=== PATIENT | female | born 1995 ===

== ENCOUNTER 2019-07-28 18:40 | Emergency (ER) | payer SELFPAY ==
--- NOTE | 2019-07-28 20:04 | CT ---
CT Brain WO Con History: Headache Comparison: None. Findings: No acute hemorrhage or infarct. No midline shift or mass effect. Ventricular size and extra -axial CSF spaces are normal. Calvarium is intact. No mucosal thickening right posterior ethmoids. The mastoids are clear. Impression: No acute intracranial abnormality.
[2019-07-28 20:50] LABS: Bilirubin Negative (Negative); Blood, Urine Negative (Negative); Clarity Clear (Clear); Glucose, Urine (Dipstick) Normal (Negative); Leukocyte Negative Leu/uL (Negative); Nitrite Negative (Negative); Protein, Urine (Dipstick) Negative (Neg-Trace); Urobilinogen Normal mg/dL (Less than 2)
[2019-07-28 20:51] LABS: Pregnancy Test - Urine (BHCG) Negative (Negative); Pregu Control Background? CLEAR/WHITE (CLR/WHITE); Pregu Control Bar Appear? YES (CONTROL BAR); Specific Gravity 1.012 (1.002-1.036)
== END 2019-07-28 20:55 | disposition home or self-care (01) ==
LOC: ERS 18:40
DX: R51 Headache (principal)
CPT/HCPCS: 70450; 81003; 81025

== ENCOUNTER 2021-03-27 11:30 | Emergency (ER) | payer SELFPAY ==
[2021-03-27] MEDS ORDERED: Ketorolac Tromethamine 30 MG/ML VIAL ONE (13:54)
== END 2021-03-27 13:50 | disposition home or self-care (01) ==
LOC: ERS 11:30
DX: R51.9 Headache, unspecified (principal); M54.5 Low back pain
CPT/HCPCS: 96372; 99283; J1885

== ENCOUNTER 2022-05-08 21:39 | Emergency (ER) | payer SELFPAY ==
[2022-05-08] MEDS ORDERED: Acetaminophen 500 MG TAB ONE (22:18)
[2022-05-08] MEDS ORDERED: Meclizine HCl 25 MG TAB ONE (22:18)
[2022-05-08 22:36] LABS: Bilirubin Negative (Negative); Blood, Urine Negative (Negative); Clarity Clear (Clear); Glucose, Urine (Dipstick) Normal (Negative); Ketone, Urine Negative (Negative); Leukocyte Negative Leu/uL (Negative); Nitrite Negative (Negative); Protein, Urine (Dipstick) Negative (Neg-Trace); Specific Gravity, Urine 1.008 (1.002-1.036); Urobilinogen Normal mg/dL (Less than 2); pH, Urine 6.5 (5.0-9.0)
[2022-05-08 22:39] LABS: Pregnancy Test - Urine (BHCG) Negative (Negative); Pregu Control Background? CLEAR/WHITE (CLR/WHITE); Pregu Control Bar Appear? YES (CONTROL BAR); Specific Gravity 1.008 (1.002-1.036)
== END 2022-05-08 23:46 | disposition home or self-care (01) ==
LOC: ERS 21:39
DX: G43.909 Migraine, unspecified, not intractable, without status migrainosus (principal); H81.13 Benign paroxysmal vertigo, bilateral; R29.700 NIHSS score 0
CPT/HCPCS: 70450; 81003; 81025; 96360